=== PATIENT | male | born 1955 | race Caucasian/White ===

== ENCOUNTER 2016-11-30 20:07 | Inpatient (IN) | payer OTHER ==
--- NOTE | ~2016-11-30 | CO ---
Unit #: [id number] #: [id number] Patient: ELADIO SANDOVAL [id number] [facility] [address] [facility]. [place], [place] [address] [id number] MR#: [id number] NAME: ELADIO SANDOVAL ROOM: 55 Age: 61 Sex: M Admission Date: 11/30/2016 : 1955 Attending Physician: Ricarda Shultz M.D. Primary Care Physician: Vikram Rodríguez Consultation Date: 12/01/2016 CONSULTATION REPORT JOB NOTE: DICTATION ENDS HERE CC: PRIMARY CARE PHYSICIAN AND [facility] CARDIOLOGY REASON FOR CONSULTATION New onset atrial fibrillation. HISTORY OF PRESENT ILLNESS This is a 61-year-old white male, who is seen in our office by Dr. Portillo last year for evaluation of a ventral septal defect that is from a congenital defect, who came to the emergency room on this admission with fever for 3 or 4 days with increased shortness of breath with exertion and chills. He denies any nausea, vomiting, or diarrhea. He says he has occasional constipation. He denies any chest pain or pain in his neck, bilateral jaws, shoulders, arms, or elbow. He denies any palpitations. No dizziness, presyncope, or syncope. He denies orthopnea, but had some paroxysmal nocturnal dyspnea the day before admission. In the emergency room, the patient's blood pressure DICTATION ENDS HERE Dictated by... Oswaldo Willoughby/darlene TD: 12/01/2016 23:21 JOB #: [id number] CONSULTATION REPORT Page 1 of 1 X Eda Arriola APRN CONSULTATION REPORT
--- NOTE | ~2016-11-30 | CR63 ---
[facility] A Service of [facility] RADIOLOGY TEXT RESULTS PATIENT: ELADIO SANDOVAL LOCATION: [facility] : 54 UNIT #: [id number] AGE: [address]: Ricarda Shultz MD SEX: M ORDER DR: [id number] [place] [id number] [facility] [place] [facility]. [place], [place] [address] [id number] I MR#: [id number] Acc #: [id number] NAME: ELADIO SANDOVAL. : 1955 SEX: M STUDY DATE/TIME: 12/02/2016 7:31 UNIT: [facility] ROOM: [facility] STUDY DESCRIPTION: CR Chest 2 View Attending Physician: Ricarda Shultz M.D. Ordering Physician: Ricarda Shultz M.D. Primary Care Physician: Vikram [facility] MEDICAL IMAGING REPORT This report is preliminary unless electronic signature is present EXAM PA and lateral chest date 12/02/2016 HISTORY 61-year-old male with shortness of breath, pneumonia, fever, and cough. Symptoms began 3 days ago. Atrial fibrillation. COMPARISON PA and lateral chest 11/30/2016. FINDINGS There is moderate but stable cardiac enlargement with central vascular congestive change. Mild central interstitial prominence thought to represent a component of interstitial edema. There is more confluent edema, pneumonia or atelectasis in the infrahilar right lower lobe. No pneumothorax. Degenerative endplate spurring in the thoracic spine. IMPRESSION 1. Airspace disease in the right lower lobe. Correlate clinically for pneumonia. This is not thought to be significantly changed from the previous study. 2. Stable cardiomegaly with central vascular congestion and probable mild superimposed interstitial edema, probably not significantly changed from 11/30/2016. Dictated by... Belkis Goldstein M.D. THIS IS AN ELECTRONICALLY VERIFIED REPORT Belkis Goldstein M.D. at 12/03/2016 7:04 AM GARLAND/mohit TD: 12/02/2016 14:33 [facility] A Service of [facility] & [facility] RADIOLOGY TEXT RESULTS PATIENT: ELADIO SANDOVAL LOCATION: [place] [address] : 53 UNIT #: [id number] AGE: [address]: Ricarda Shultz MD SEX: M ORDER DR: JOB #: [id number] MEDICAL IMAGING REPORT Page 1 of 1 COPY
--- NOTE | ~2016-11-30 | CO ---
Unit #: [id number] #: [id number] Patient: ELADIO SANDOVAL [id number] [facility]. [place] [id number] [facility]. [place], [place] [address] [id number] MR#: [id number] NAME: ELADIO SANDOVAL. ROOM: 556 Age: 61 Sex: M Admission Date: 11/30/2016 : 1955 Attending Physician: Ricarda Shultz M.D. Primary Care Physician: Vikram Rodríguez Consultation Date: 12/01/2016 CONSULTATION REPORT REASON FOR CONSULTATION Atrial fibrillation, questionable new onset. HISTORY OF PRESENT ILLNESS This is a 61-year-old white male who has been seen by Dr. Portillo in the past, seen last September 2015 with evaluation for ventricular septal defect from congenital defect. The patient had a cardiac cath back in 2004, and it did not reveal any significant stenosis. The patient came to the emergency room after having a 4-day history of increased fevers, chills, body aches, increased shortness of breath (especially with exertion) and had some paroxysmal nocturnal dyspnea. He denies any dizziness, pre-syncope or syncope. He denies any chest pain, pain in his neck, bilateral jaws, shoulders, arms or elbows. He denies having any significant recent illness besides this episode. In the emergency room the patient's blood pressure was 154/80. His heart rate was 78, respirations 16, temperature 99.3. His chest x-ray showed patchy airspace disease in the right lower lobe. He has been diagnosed with pneumonia. His potassium is down to 2.7, magnesium 1.4. His WBC is 12.1, hemoglobin 11.6. His initial cardiac enzymes are negative. His EKG shows atrial fibrillation with controlled ventricular rate. No significant ischemia. The patient's potassium and magnesium have been supplemented. He has been started on a therapeutic dose of Lovenox, and the patient is continued on atenolol. Cardiology has been consulted to assist with evaluation and management. It is noted that the patient had a transesophageal echocardiogram in September of 2015 to evaluate the ventricular septal defect and was recommended to follow up and discuss the options of surgical repair, and the patient states that he just never followed up but has a desire to evaluate that option at this time. PAST MEDICAL HISTORY 1. Congenital heart disease; has a ventricular septal defect. 2. September 2015, two-D echo and transesophageal echocardiogram by Dr. Portillo at [facility] revealed ventricular septal defect, left to right shunt, ntct-pm-zbogoitd global hypokinesis of the left ventricle, LVEF of 40% to 45% with moderate mitral regurgitation, mild tricuspid regurgitation and mild aortic regurgitation with RV pressures normal. No thrombus or masses. 3. Hypertension. 4. Hyperlipidemia. 5. Diabetes mellitus type 2. 6. In 2004 had a cardiac cath per Dr. Hamilton Goodwin that showed luminal Unit #: [id number] #: [id number] Patient: ELADIO SANDOVAL irregularities in the left circumflex. Other coronaries with no significant stenosis with LVEF of 50% to 55%. Also at that time had a right cath in 2004 that showed sqpt-gc-anfxl shunt, mild mitral regurgitation, no aortic stenosis, ysis-fh-vosqbghr pulmonary hypertension. 7. Obesity, 227 pounds with a BMI of 28. 8. Nonsmoker. PAST SURGICAL HISTORY 1. Colonoscopy in 2004. Negative. 2. Appendectomy. HOME MEDICATIONS 1. Atenolol 100 mg p.o. daily. 2. Metformin 850 mg p.o. b.i.d. 3. Glipizide 10 mg 1 tablet p.o. daily. 4. Norvasc 10 mg p.o. daily. 5. Lisinopril 40 mg p.o. daily. 6. Hydrochlorothiazide 25 mg 1 tablet p.o. daily. 7. Lipitor 20 mg 1 tablet p.o. q.h.s. ALLERGIES Tetanus and diphtheria toxoid. SOCIAL HISTORY The patient lives alone. He is a lifetime nonsmoker. Drinks occasional beer. No illicit drug abuse. FAMILY HISTORY Negative for coronary artery disease. REVIEW OF SYSTEMS See details in the HPI. PHYSICAL EXAMINATION GENERAL: On exam, Mr. Sandoval is a 61-year-old white male, in some mild respiratory distress, some shortness of breath with conversation. VITAL SIGNS: Blood pressure is 172/90, heart rate 84, respirations 18, temperature 98, O2 sats 98% on 2 liters. NECK: Trachea is midline. No thyromegaly or lymphadenopathy. Conducted cardiac murmur. HEART: S1, S2, irregular rate and rhythm. A loud 3/6 systolic murmur over the aortic region, left sternal border. LUNGS: Diminished with some scattered rhonchi, faint wheeze. ABDOMEN: Soft, nontender. EXTREMITIES: Pedal pulses are palpable. He has 1+ pedal edema. DIAGNOSTIC STUDIES LABORATORY DIAGNOSTIC DATA: Glucose is 91, BUN 9, creatinine 0.2, eGFR is 107.8, sodium 140, potassium 2.7, chloride 105, CO2 22, calcium 7.6, magnesium 1.4, total protein 7.8, albumin 3.7, bili total 1, AST 25, ALT 25, alkaline phosphatase 72. Lactic acid is 1.1. TSH is 1.16. WBC is 12.1, hemoglobin 12.8, hematocrit 37.8, platelets 204. Initial cardiac enzymes - CK-MB 1, troponin less than 0.05; CK-MB 1.2, troponin less than 0.05. Repeat cardiac enzymes this morning - CK total 106, MB 2, percentage of MB 1.9, troponin 0.03. Urinalysis not obtained. Blood cultures are pending. IMAGING: Chest x-ray shows patchy airspace disease in the right lower Unit #: [id number] #: [id number] Patient: ELADIO SANDOVAL lobe concerning for pneumonia. CARDIOVASCULAR: EKG shows atrial fibrillation with controlled rate of 82 beats per minute, some ST-T wave abnormality. IMPRESSION 1. Dyspnea. 2. Fever. 3. Right lower lobe pneumonia. 4. Atrial fibrillation, questionable new onset. 5. Hypertension. 6. Hypokalemia. 7. Hypomagnesemia. 8. History of ventricular septal defect, congenital heart disease. Last REBECCA, 09/2015, showed a xenh-jl-fupsd shunt with LVEF of 40% to 45%, moderate mitral regurgitation, mild tricuspid regurgitation, mild aortic regurgitation. 9. No significant stenosis on cardiac cath in 2004. 10. Hyperlipidemia. 11. Diabetes mellitus type 2. 12. Mild obesity. 13. Nonsmoker. PLAN 1. Cardiology consulted to assist with evaluation and management of the patient's atrial fibrillation. Looking back on previous records, had seen Dr. Portillo a little over a year ago. and the patient was in sinus rhythm. The patient is asymptomatic. Denies any palpitations or heart racing, so questionable onset of the atrial fibrillation. 2. The patient's heart rate is fairly controlled. Continue on the Metoprolol but will decrease the dose to 25 mg p.o. b.i.d. 3. Also added lisinopril 10 mg p.o. b.i.d. 4. Recheck his two-D echo for reevaluation of the LVEF and ventricular septal defect. 5. The patient's potassium and magnesium are being supplemented. Will recheck the levels after supplementation. 6. The patient is on therapeutic dosing of Lovenox for anticoagulation. 7. Will obtain ABGs to evaluate the patient's CO2 and pO2 due to having some dyspnea with conversation. 8. On exam, there are no signs or symptoms of unstable angina. Cardiac enzymes are negative. EKG does not show anything acute. 9. Continue to monitor labs. Further recommendations pending per Dr. Casarez. Thank you very much for allowing us to participate in his care. Dictated by... Eda Arriola A.P.R.N. for Sriram Suarez/eric TD: 12/01/2016 12:03 JOB #: [id number] Unit #: [id number] #: [id number] Patient: ELADIO SANDOVAL CONSULTATION REPORT Page 1 of 1 X Eda Arriola APRN CONSULTATION REPORT
--- NOTE | ~2016-11-30 | HP ---
Unit #: [id number] #: [id number] Patient: ELADIO SANDOVAL [id number] [place], [place] [address] [id number] MR#: [id number] NAME: ELADIO SANDOVAL. ROOM: Age: 61 Sex: M Admission Date: 11/30/2016 : 1955 Attending Physician: Boaz Mon M.D. Primary Care Physician: Vikram Rodríguez HISTORY AND PHYSICAL CHIEF COMPLAINT Community-acquired pneumonia, new-onset atrial fibrillation. HISTORY OF PRESENT ILLNESS This pleasant 61-year-old male with history of a VSD, essential hypertension, AODM, is admitted for pneumonia and atrial fibrillation. The patient developed a respiratory infection about three weeks ago associated with low-grade fevers and a deep cough and head congestion. Initially, he had some improvement but worsened two nights ago when his fever returned. Today, he has been more short of breath, denies palpitations or any cardiac symptoms. He presents to this emergency department with a low-grade temperature with an EKG showing rate-controlled atrial fibrillation. The patient does take atenolol. In the ER, he was treated with potassium for a potassium level of 2.9, a liter of saline, therapeutic dose of Lovenox, Rocephin and Zithromax. A call was also made to the patient's cardiology group who will be seeing the patient in the morning. PAST MEDICAL HISTORY 1. Patient does have a history of VSD. Cardiac catheterization in 2004 revealed very mild CAD. It was suggestive of axbp-eo-rnzun shunt with mild MR and gwij-yv-akxzvyyo pulmonary hypertension. 2. AODM. 3. Essential hypertension. 4. Negative colonoscopy in 2004. ALLERGIES Tetanus booster. HOME MEDICATIONS 1. Atenolol 100 mg daily. 2. Norvasc. 3. Lisinopril. 4. Metformin 850 mg b.i.d. 5. Glipizide. Will check doses with the patient's pharmacist. SOCIAL HISTORY The patient lives alone. He is a lifelong nonsmoker. Drinks an occasional beer. FAMILY HISTORY Unit #: [id number] #: [id number] Patient: ELADIO SANDOVAL Negative for CAD. REVIEW OF SYSTEMS Notable for a cough, shortness of breath, VSD, essential hypertension, AODM, recent URI, fevers, chills. All other systems were reviewed and are negative. PHYSICAL EXAMINATION VITAL SIGNS: Temperature 99.3, pulse 77, respirations 16, blood pressure 154/80, O2 saturation 99% on room air. GENERAL: Pleasant, morbidly obese 61-year-old male currently in no acute distress. HEENT: Eyes PERRLA. Extraocular muscles are intact. Pharynx benign. NECK: Supple without adenopathy or thyromegaly. CHEST: Crackles at the right base. HEART: Irregular S1, S2 with a diastolic murmur best heard along the left sternal border. ABDOMEN: Bowel sounds are present. No hepatosplenomegaly, tenderness or masses. EXTREMITIES: Without edema. Pedal pulses are present. NEUROLOGIC: Awake, alert, oriented. Cranial nerves are intact. Equal strength throughout. DIAGNOSTIC STUDIES LABORATORY: Hematocrit 37.8, white blood cell count 12.1, normal platelet count. SMA-12 glucose 135, potassium 2.9, calcium 7.9. Lactic acid pending. IMAGING: Chest x-ray right lower lobe infiltrate. CARDIOVASCULAR: EKG atrial fibrillation rate 82, nonspecific ST wave flattening. ASSESSMENT 1. Right lower lobe community-acquired pneumonia. 2. New-onset atrial fibrillation. Patient is rate controlled. He takes atenolol for hypertension. 3. He has a history of VSD. 4. Essential hypertension. 5. Hypokalemia. 6. AODM. PLAN 1. Rocephin and Zithromax. Patient will need a follow up chest x-ray after treatment of pneumonia. 2. Replace potassium and check magnesium. 3. Case was discussed with Cardiology. 4. Lovenox was started. 5. Verify home medications. 6. Obtain thyroid function tests and echo. 7. Further workup and consultants depending on above. Unit #: [id number] #: [id number] Patient: ELADIO SANDOVAL Dictated by Belinda Boyle M.D. AML/cs TD: 11/30/2016 22:41 JOB #: [id number] HISTORY AND PHYSICAL Page 1 of 1 X Belinda Boyle MD X HISTORY AND PHYSICAL
--- NOTE | ~2016-11-30 | DS ---
Unit #: [id number] #: [id number] Patient: ELADIO SANDOVAL [id number] [address] [address] [id number] I MR#: [id number] NAME: ELADIO SANDOVAL. ROOM: 55 Age: 61 Sex: M Admission Date: 11/30/2016 : 1955 Discharge Date: Attending Physician: Ricarda Shultz M.D. Primary Care Physician: Vikram Rodríguez DISCHARGE SUMMARY DISCHARGE DIAGNOSES 1. Acute hypoxic respiratory failure. 2. Right lower lobe pneumonia. 3. New onset atrial fibrillation. 4. Hypokalemia, severe. 5. Hypomagnesemia, severe. 6. Hypocalcemia. 7. History of ventricular septal defect. 8. Hypertension, uncontrolled. 9. Diabetes mellitus type 2, uncontrolled. 10. Moderate pulmonary hypertension. 11. History of cardiac cath in 2004. Showed some luminal irregularities. Ejection fraction 50% to 55%. 12. Hyperlipidemia. 13. Nonsmoker. CONSULTATIONS Dr. Magaña. PROCEDURES None. DIAGNOSTIC TESTING LAB DATA: Glucose 161, potassium 3, magnesium 1.4. BNP 780. Blood cultures negative. Troponin negative. TSH 1.28. ABG - pH 7.5, carbon dioxide 32, oxygen 62. Lactic acid 1.1. IMAGING: Chest x-ray shows right lower lobe airspace disease. ALLERGIES Tetanus and diphtheria toxoid. DISCHARGE MEDICATIONS 1. Magnesium oxide 400 p.o. b.i.d. 2. Eliquis 5 mg p.o. b.i.d. 3. Metoprolol 25 p.o. t.i.d. 4. Lipitor 20 daily. 5. Lisinopril 40 p.o. daily. 6. Glipizide ER 10 mg p.o. daily. 7. ProAir 2 puffs q.i.d. p.r.n. shortness of breath. 8. Ceftin 500 p.o. b.i.d. 9. Potassium 40 mg p.o. daily. 10. Azithromycin 500 p.o. daily for 4 days. Unit #: [id number] #: [id number] Patient: ELADIO SANDOVAL HOSPITALIZATION COURSE A 61 year old admitted because of shortness of breath. Acute hypoxic respiratory failure. Currently he is saturating fine. He does not need home O2. His sats are greater than 90% on room air. Right lower lobe pneumonia. Patient started on broad-spectrum antibiotics, including IV Rocephin and Zithromax. At the time of discharge patient will be discharged on Ceftin and azithromycin. Atrial fibrillation, new onset. Patient was seen by cardiology. Patient was started with Metoprolol. Currently rate controlled. Continue with Eliquis for anticoagulation. Severe hypokalemia and hypomagnesemia. Replaced with IV and p.o. potassium and magnesium. I am going to repeat levels before discharge. Hypertension, uncontrolled. Metoprolol has been increased. Diabetes mellitus type 2, uncontrolled. Continue with glipizide. PLAN/FOLLOWUP Discussed with cardiology. Okay to discharge the patient home. Patient will be discharged home later today once magnesium level and potassium level is resulted. Follow with family physician in [address] Charles. Patient might have obstructive sleep apnea. He will have a sleep study and pulmonary function test as an outpatient. Follow with Dr. Charles with results. Follow with Dr. Casarez in 3 weeks. NOTE: Discharge time taken is 33 minutes. Dictated by... Sriram Sorensen/eric TD: 12/03/2016 14:20 JOB #: [id number] DISCHARGE SUMMARY Page 1 of 1 X Ricarda Shultz MD X DISCHARGE SUMMARY
--- NOTE | ~2016-11-30 | EKG ---
PATIENT: ELADIO SANDOVAL UNIT #: [id number] Ventricular Rate: 89 BPM Atrial Rate: 202 BPM QRS Duration: 108 ms Q-T Interval: 388 ms QTC Calculation(Bezet): 472 ms Calculated R [place]: 27 degrees Calculated T [place]: 88 degrees Diagnosis Line: Atrial fibrillation Diagnosis Line: Nonspecific T wave abnormality , probably Diagnosis Line: digitalis effect Diagnosis Line: Prolonged QT Diagnosis Line: Abnormal ECG Diagnosis Line: When compared with ECG of 01-DEC-2016 04:49, Diagnosis Line: ST no longer depressed in Inferior leads Diagnosis Line: Nonspecific T wave abnormality no longer evident Diagnosis Line: in Inferior leads Diagnosis Line: Confirmed by MARY JO SIMMONS MD ([id number]) on 12/03/2016 Diagnosis Line: 7:48:09 PM INTERPRETING MD: TROY WILLINGHAM
--- NOTE | ~2016-11-30 | EKG ---
PATIENT: ELADIO SANDOVAL UNIT #: [id number] Ventricular Rate: 82 BPM Atrial Rate: 61 BPM QRS Duration: 104 ms Q-T Interval: 402 ms QTC Calculation(Bezet): 469 ms Calculated R [place]: 5 degrees Calculated T [place]: 110 degrees Diagnosis Line: Atrial fibrillation Diagnosis Line: Abnormal QRS-T angle, consider primary T wave Diagnosis Line: abnormality Diagnosis Line: Abnormal ECG Diagnosis Line: No previous ECGs available Diagnosis Line: Confirmed by MARY JO SIMMONS MD ([id number]) on 11/30/2016 Diagnosis Line: 11:09:13 PM INTERPRETING MD: TROY WILLINGHAM
--- NOTE | ~2016-11-30 | CO ---
Unit #: [id number] #: [id number] Patient: ELADIO SANDOVAL [id number] [place] [id number] [facility]. [place], [place] [address] [id number] I MR#: [id number] NAME: ELADIO SANDOVAL. ROOM: 556 Age: 61 Sex: M Admission Date: 11/30/2016 : 1955 Attending Physician: Ricarda Shultz M.D. Primary Care Physician: Vikram Rodríguez Consultation Date: 12/01/2016 CONSULTATION REPORT REASON FOR CONSULTATION Pneumonia, respiratory failure, abnormal blood gas. HISTORY OF PRESENT ILLNESS This 61-year-old gentleman, who has diabetes, hypertension and history of VSD, presents to the hospital with "high fever." He apparently had URI-type symptoms 2 weeks ago with rhinitis, mild cough but no sputum. He treated himself with over the counter remedies and improved. Approximately 2 days ago he developed a "high fever" but did not take it with a thermometer. He had cough but no sputum and presented to the hospital after he had increasing dyspnea on exertion. Chest x-ray suggested a right lower lobe infiltrate. It is reported that he had saturations of 99% on room air, but I doubt the accuracy. He had an arterial blood gas with a pO2 of 62 on 2 liters. We were asked to evaluate. The patient does feel better today. PAST MEDICAL HISTORY Past medical history is remarkable for hypertension, diabetes, history of VSD. He denies any type of lung disease. MEDICATIONS AT HOME Atenolol, Norvasc, lisinopril, metformin, glipizide. He denies any inhaled medicines or oxygen. ALLERGIES Tetanus. SOCIAL HISTORY He is a never smoker, occasionally drinks beer. FAMILY HISTORY No definite familial lung disease. REVIEW OF SYSTEMS No difficulty swallowing. Occasional indigestion with some foods. He denies snoring or daytime sleepiness, although he has the body habitus for sleep apnea. No hemoptysis, chest pain, pleurisy. No abdominal pain, melena, hematochezia, hematuria, dysuria, focal weakness, paresthesias, leg pain, swelling. Further review of systems is negative. PHYSICAL EXAMINATION GENERAL: Examination reveals a patient who is in no acute distress on low-flow nasal cannula oxygen. VITAL SIGNS: He is afebrile. Pulse 83, respiratory rate 24, blood Unit #: [id number] #: [id number] Patient: ELADIO SANDOVAL F pressure 158/97. He is 6'3", 227 pounds. BMI is 28. HEENT: Pupils equal, round and reactive to light. Sclerae anicteric. Head atraumatic. Mallampati class 4 oropharynx. NECK: Supple. No supraclavicular or cervical adenopathy appreciated. CHEST: Decreased breath sounds. A few scattered crackles at the bases. No dense consolidation. He did have a very rare wheeze. CARDIAC: Examination reveals an irregular rhythm, controlled rate. No gallop. ABDOMEN: Abdomen is obese, soft, nontender. No hepatomegaly or rebound. EXTREMITIES: Extremities reveal no clubbing, cyanosis or edema. No calf tenderness. SKIN: Warm and dry without rash or diaphoresis. NEUROLOGIC: Grossly intact. No focal muscular or sensory deficits. DIAGNOSTIC STUDIES IMAGING: Chest x-ray - Right lower lobe infiltrate. LABORATORY EXAMINATION: Arterial blood gas - pH 7.5, pCO2 of 32, pO2 62 on 2 liters. BUN and creatinine were normal. He had a low potassium and magnesium. Lactic acid was 1.1. INR has not been rechecked. Cardiac enzymes negative. White blood cell count is 11.2, hemoglobin 11.6, platelet count 204. Blood cultures performed and are pending. CARDIOVASCULAR: EKG - Atrial fibrillation. IMPRESSION 1. Hypoxemic respiratory failure. 2. Pneumonia, community acquired, right lower lobe. 3. Obesity. Body habitus consistent with sleep apnea but otherwise denies symptoms. 4. Mild wheeze. 5. Atrial fibrillation. 6. Diabetes. 7. Hypertension. PLAN Agree with antibiotics. Clinically he has improved. Will check oxygenation needs at discharge. Will need followup chest x-ray in the office, and this has been discussed with the patient. I will add a brief course of nebulized bronchodilators but will avoid steroids for his pneumonia and wheeze given his diabetes. Thank you very much for allowing me to participate in the care of Mr. Sandoval. Dictated by... Joey Charles M.D. HONORIO/eric TD: 12/08/2016 10:52 JOB #: [id number] Unit #: [id number] #: [id number] Patient: ELADIO SANDOVAL CONSULTATION REPORT Page 1 of 1 X Joey Charels MD CONSULTATION REPORT
--- NOTE | ~2016-11-30 | CR63 ---
[facility] A Service of [facility] RADIOLOGY TEXT RESULTS PATIENT: ELADIO SANDOVAL LOCATION: [facility] : 54 UNIT #: [id number] AGE: [address]: Ricarda Shultz MD SEX: M ORDER DR: [id number] [facility] [address] [place], [place] [address] [id number] I MR#: [id number] Acc #: [id number] NAME: ELADIO SANDOVAL. : 1955 SEX: M STUDY DATE/TIME: 11/30/2016 20:13 UNIT: CEDOF ROOM: [id number] STUDY DESCRIPTION: CR Chest 2 View Attending Physician: Belinda Boyle M.D. Ordering Physician: Dewayne Muniz M.D. Primary Care Physician: Vikram Rodríguez MEDICAL IMAGING REPORT This report is preliminary unless electronic signature is present EXAM Two-view chest, 11/30/2016 HISTORY Shortness of air, fever, cough, congestion x3 days. FINDINGS 2 views of the chest demonstrates patchy airspace disease right lower lobe concerning for acute infectious pneumonia. Recommend clinical and radiographic followup to resolution. There is cardiomegaly. Mild prominence of the pulmonary vascular interstitium could represent a component of CHF. No effusions. Osseous structures are unremarkable. IMPRESSION Patchy airspace disease right lower lobe concerning for acute infectious pneumonia. Recommend clinical and radiographic followup to resolution following appropriate treatment. Dictated by... Barb Jordan M.D. THIS IS AN ELECTRONICALLY VERIFIED REPORT Barb Jordan M.D. at 12/01/2016 10:59 PM HANY/joana TD: 12/01/2016 00:09 JOB #: [id number] MEDICAL IMAGING REPORT Page 1 of 1 COPY
--- NOTE | ~2016-11-30 | EKG ---
PATIENT: ELADIO SANDOVAL UNIT #: [id number] Ventricular Rate: 88 BPM Atrial Rate: 96 BPM QRS Duration: 108 ms Q-T Interval: 396 ms QTC Calculation(Bezet): 479 ms Calculated R [place]: 28 degrees Calculated T [place]: -57 degrees Diagnosis Line: Atrial fibrillation Diagnosis Line: Nonspecific ST and T wave abnormality Diagnosis Line: Prolonged QT Diagnosis Line: Abnormal ECG Diagnosis Line: No previous ECGs available Diagnosis Line: Confirmed by MARY JO SIMMONS MD ([id number]) on 12/01/2016 Diagnosis Line: 10:14:29 PM INTERPRETING MD: TROY WILLINGHAM
[2016-11-30 18:10] LABS: BASOPHIL# 0.1 X10e3 (0-0.3); BASOPHIL% 0.7 % (0-2.5); EOSINOPHIL# 0.2 X10e3 (0-0.7); EOSINOPHIL% 1.2 % (0.0-7.0); HEMATOCRIT 37.8 % (38.0-50.0); HEMOGLOBIN 12.8 gm/dL (13.0-16.0); LYMPHOCYTE# 1.3 X10e3 (1.0-3.5); LYMPHOCYTE% 10.8 % (17.0-45.0); MEAN CELL VOLUME 94.1 FL (83-96); MEAN CORPUSCULAR HEMOGLOBIN 31.9 PG (28-34); MEAN CORPUSCULAR HGB CONC 33.9 g/dL (30-36); MEAN PLATELET VOLUME 8.5 FL (6.5-11.5); MONOCYTE# 1.4 X10e3 (0-1.0); MONOCYTE% 11.3 % (3.0-12.0); NEUTROPHIL# 9.1 X10e3 (1.5-7.1); PLATELET COUNT 222 X10e3 (140-420); RED BLOOD COUNT 4.01 X10e (3.90-5.60); RED CELL DISTRIBUTION WIDTH 14.5 % (11.0-15.5); WHITE BLOOD COUNT 12.1 X10e3 (4.0-10.5)
[2016-11-30 18:12] LABS: DIFF IND NO
[2016-11-30 18:40] LABS: ALBUMIN SERUM 3.7 g/dL (3.5-5.0); BILIRUBIN, DIRECT 0.3 mg/dL (0.0-0.2); BILIRUBIN,INDIRECT 0.7 mg/dL (0.0-0.9); BUN/CREATININE RATIO 18.57; CALCIUM SERUM 7.9 mg/dL (8.4-10.2); CREATININE SERUM 0.7 mg/dL (0.6-1.4); GLOM FILT RATE Estimated 101.2 mL/min (>60); PROTEIN TOTAL SERUM 7.8 g/dL (6.0-8.3)
[2016-11-30 18:45] LABS: POTASSIUM 2.9 mmol/L (3.5-5.1)
[~2016-11-30 20:07] MED LIST: AMOXICILLIN PO; ATENOLOL PO; DARVOCET-N 1001 TAB PO; LISINOPRIL PO; LOPRESSOR PO; NORVASC PO
[2016-11-30 22:00] LABS: POC - TROPONIN <0.05 ng/mL (<=0.05)
[2016-11-30 22:01] LABS: POC - CKMB 1.2 ng/mL (0.0-7.9); POC - TROPONIN <0.05 ng/mL (<=0.05)
[2016-12-01 01:07] LABS: %MB 1.8 % (0.0-4.0)
[2016-12-01 07:04] LABS: BASOPHIL% 0.2 % (0-2.5); EOSINOPHIL# 0.1 X10e3 (0-0.7); EOSINOPHIL% 0.6 % (0.0-7.0); HEMATOCRIT 34.1 % (38.0-50.0); HEMOGLOBIN 11.6 gm/dL (13.0-16.0); LYMPHOCYTE# 1.6 X10e3 (1.0-3.5); LYMPHOCYTE% 14.1 % (17.0-45.0); MEAN CELL VOLUME 93.8 FL (83-96); MEAN CORPUSCULAR HEMOGLOBIN 31.9 PG (28-34); MEAN PLATELET VOLUME 8.8 FL (6.5-11.5); MONOCYTE# 1.2 X10e3 (0-1.0); MONOCYTE% 10.9 % (3.0-12.0); NEUTROPHIL# 8.3 X10e3 (1.5-7.1); NEUTROPHIL% 74.2 % (40-75); PLATELET COUNT 204 X10e3 (140-420); RED BLOOD COUNT 3.63 X10e (3.90-5.60); RED CELL DISTRIBUTION WIDTH 14.4 % (11.0-15.5); WHITE BLOOD COUNT 11.2 X10e3 (4.0-10.5)
[2016-12-01 07:10] LABS: DIFF IND NO
[2016-12-01 07:41] LABS: CALCIUM SERUM 7.6 mg/dL (8.4-10.2); CREATININE SERUM 0.6 mg/dL (0.6-1.4); GLOM FILT RATE Estimated 107.8 mL/min (>60); MAGNESIUM 1.4 mg/dL (1.6-3.0)
[2016-12-01 07:53] LABS: THYROID STIMULATING HORMONE 1.16 uIU/ml (0.34-5.60)
[2016-12-01 07:57] LABS: POTASSIUM 2.7 mmol/L (3.5-5.1)
[2016-12-01 08:00] LABS: FREE THYROXIN (T4) 1.1 ng/dL (0.58-1.64)
[2016-12-01 08:29] LABS: %MB 1.9 % (0.0-4.0)
[2016-12-01 11:22] LABS: ARTERIAL BLOOD GAS CARBOXY HB 1.3 %sat (0.0-9.0); ARTERIAL BLOOD GAS HCO3 25.5 mmol/L; ARTERIAL BLOOD GAS MET HB 0.5 %sat (0.0-2.0); ARTERIAL BLOOD GAS PCO2 32.5 mmHg (35.0-45.0); ARTERIAL BLOOD GAS pH 7.503 (7.350-7.450)
[2016-12-01 11:23] LABS: ARTERIAL BLOOD GAS ALLEN TEST N; ARTERIAL BLOOD GAS ART SITE RIGHT RADIAL; ARTERIAL BLOOD GAS DELIVERY NASAL CANNULA; ARTERIAL BLOOD GAS PO2 62.3 mmHg (80.0-100); ARTERIAL DRAW? YES
[2016-12-01] MEDS ORDERED: ATENOLOL50 MG PO (11:35)
[2016-12-01] MEDS ORDERED: METFORMIN HCL850 MG PO (11:36)
[2016-12-01] MEDS ORDERED: HYDRALAZINE HCL25 MG (11:36)
[2016-12-01] MEDS ORDERED: AMLODIPINE BESY10 MG PO (11:37)
[2016-12-01] MEDS ORDERED: PRINIVIL40 MG PO (11:37)
[2016-12-01] MEDS ORDERED: LIPITOR20 MG PO (11:38)
[2016-12-01] MEDS ORDERED: GLIPIZIDE ER10 MG PO (11:39)
[2016-12-02 07:33] LABS: HEMATOCRIT 33.9 % (38.0-50.0); HEMOGLOBIN 11.4 gm/dL (13.0-16.0); MEAN CELL VOLUME 94.1 FL (83-96); MEAN CORPUSCULAR HEMOGLOBIN 31.7 PG (28-34); MEAN CORPUSCULAR HGB CONC 33.7 g/dL (30-36); MEAN PLATELET VOLUME 8.7 FL (6.5-11.5); RED BLOOD COUNT 3.61 X10e (3.90-5.60); RED CELL DISTRIBUTION WIDTH 14.7 % (11.0-15.5); WHITE BLOOD COUNT 10.6 X10e3 (4.0-10.5)
[2016-12-02 08:14] LABS: THYROID STIMULATING HORMONE 1.28 uIU/ml (0.34-5.60)
[2016-12-02 08:21] LABS: FREE THYROXIN (T4) 1.28 ng/dL (0.58-1.64)
[2016-12-02 08:35] LABS: BUN/CREATININE RATIO 16.66; CALCIUM SERUM 7.6 mg/dL (8.4-10.2); CREATININE SERUM 0.6 mg/dL (0.6-1.4); GLOM FILT RATE Estimated 107.8 mL/min (>60); MAGNESIUM 1.5 mg/dL (1.6-3.0)
[2016-12-02 08:38] LABS: POTASSIUM 2.9 mmol/L (3.5-5.1)
[2016-12-02 11:37] LABS: %MB 2.3 % (0.0-4.0)
[2016-12-03 05:43] LABS: HEMATOCRIT 33.2 % (38.0-50.0); HEMOGLOBIN 11.5 gm/dL (13.0-16.0); MEAN CORPUSCULAR HEMOGLOBIN 32.2 PG (28-34); MEAN CORPUSCULAR HGB CONC 34.7 g/dL (30-36); MEAN PLATELET VOLUME 8.2 FL (6.5-11.5); RED BLOOD COUNT 3.57 X10e (3.90-5.60); RED CELL DISTRIBUTION WIDTH 14.5 % (11.0-15.5)
[2016-12-03 06:41] LABS: BUN/CREATININE RATIO 13.33; CALCIUM SERUM 7.9 mg/dL (8.4-10.2); CREATININE SERUM 0.6 mg/dL (0.6-1.4); GLOM FILT RATE Estimated 107.8 mL/min (>60); MAGNESIUM 1.4 mg/dL (1.6-3.0)
[2016-12-03] MEDS ORDERED: MAG-OX 400400 M1 PO (14:17)
[2016-12-03] MEDS ORDERED: ELIQUIS5 MG PO (14:18)
[2016-12-03] MEDS ORDERED: LOPRESSOR PO (14:24)
[2016-12-03] MEDS ORDERED: KLOR-CON PO (14:30)
[2016-12-03] MEDS ORDERED: PROAIR HFA8.5 GM INH (14:31)
[2016-12-03] MEDS ORDERED: ZITHROMAX PO (14:32)
[2016-12-03] MEDS ORDERED: CEFTIN PO (14:32)
[2016-12-03 14:48] LABS: MAGNESIUM 1.8 mg/dL (1.6-3.0); POTASSIUM 3.2 mmol/L (3.5-5.1)
== END 2016-12-03 18:18 | disposition home or self-care (01) | DRG 193 ==
LOC: CED 20:07 → CEDOF 22:00 → C5B 12-01 06:44
PROVIDERS: Emergency Medicine; Internal Medicine; Internal Medicine Cardiovascular Disease; Nurse Practitioner Family
PROC: B246ZZZ Ultrasonography of Right and Left Heart (ICD-10-PCS; principal; 2016-12-01)
DX: J18.1 Lobar pneumonia, unspecified organism (principal); J96.01 Acute respiratory failure with hypoxia; I27.2 Other secondary pulmonary hypertension; E83.42 Hypomagnesemia; E11.65 Type 2 diabetes mellitus with hyperglycemia; Q21.0 Ventricular septal defect; I48.91 Unspecified atrial fibrillation; E87.6 Hypokalemia; E83.51 Hypocalcemia; I10 Essential (primary) hypertension; E78.5 Hyperlipidemia, unspecified; Z79.01 Long term (current) use of anticoagulants; Z79.84 Long term (current) use of oral hypoglycemic drugs; Z79.899 Other long term (current) drug therapy; E66.9 Obesity, unspecified; Z68.28 Body mass index [BMI] 28.0-28.9, adult; Z88.7 Allergy status to serum and vaccine
CPT/HCPCS: 36415; 36600; 71020; 80048; 80076; 82550; 82553; 82803; 82947; 83605; 83735; 83880; 84132; 84439; 84443; 84484; 85025; 85027; 87040; 93005; 93306; 94010; 94640; 94760; 99285; J0456; J0696; J1650; J1815; J1940; J2060; J3475

== ENCOUNTER 2017-04-10 02:31 | Inpatient (IN) | payer OTHER ==
[~2017-04-10] VITALS: Ht 190.5 cm; Wt 98.1 kg
--- NOTE | ~2017-04-10 | CR72 ---
[facility] A Service of [facility] & [facility] RADIOLOGY TEXT RESULTS PATIENT: ELADIO SANDOVAL LOCATION: [place] [address] : 53 UNIT #: [id number] AGE: [address]: Dawn Gutiérrez MD SEX: M ORDER DR: [id number] [facility] [address] [facility] [place] [facility]. [place], [place] [address] [id number] I MR#: [id number] Acc #: [id number] NAME: ELADIO SANDOVAL : 1955 SEX: M STUDY DATE/TIME: 04/12/2017 6:32 UNIT: [facility] ROOM: [facility] STUDY DESCRIPTION: CR Chest Single View Portable Attending Physician: Dawn Gutiérrez M.D. Ordering Physician: Dawn Gutiérrez M.D. Primary Care Physician: Vikram Rodríguez MEDICAL IMAGING REPORT This report is preliminary unless electronic signature is present EXAM Portable chest, 04/12 INDICATION Shortness of air and CHF and chest tightness for the last 2 days. FINDINGS AP portable chest is compared with 04/10/2017. Cardiomegaly is stable. Vascular congestion and pulmonary edema have improved. There is some mild residual disease in both bases. No pneumothorax. Dictated by... Boaz Recio Jr., M.D. THIS IS AN ELECTRONICALLY VERIFIED REPORT Boaz Recio Jr., M.D. at 04/12/2017 3:47 PM ADELINA/urban TD: 04/12/2017 10:24 JOB #: [id number] MEDICAL IMAGING REPORT Page 1 of 1 COPY
--- NOTE | ~2017-04-10 | CR72 ---
[facility] A Service of [facility] & [facility] RADIOLOGY TEXT RESULTS PATIENT: ELADIO SANDOVAL LOCATION: [place] [address]- : 53 UNIT #: [id number] AGE: [address]: Dawn Gutiérrez MD SEX: M ORDER DR: [id number] [facility] [address] [facility]. [place], [place] [address] [id number] I MR#: [id number] Acc #: [id number] NAME: ELADIO SANDOVAL. : 1955 SEX: M STUDY DATE/TIME: 04/10/2017 3:23 UNIT: [facility] ROOM: [facility] STUDY DESCRIPTION: CR Chest Single View Portable Attending Physician: Dawn Gutiérrez M.D. Ordering Physician: Roscoe Montenegro M.D. Primary Care Physician: Vikram Rodríguez MEDICAL IMAGING REPORT This report is preliminary unless electronic signature is present EXAM Chest x-ray, 04/10/2017 HISTORY 62-year-old male in the ED complaining of 1-day history of shortness of air and chest tightness. TECHNIQUE AP portable upright chest x-ray FINDINGS The exam shows moderate cardiomegaly with pulmonary venous redistribution and mild diffuse interstitial pulmonary edema suggesting congestive heart failure. No visible airspace consolidation or pleural effusion. Similar findings were present on the previous study of 12/02/2016. IMPRESSION Cardiomegaly with likely vascular congestion as noted above. Dictated by... Massimo Desouza M.D. THIS IS AN ELECTRONICALLY VERIFIED REPORT Massimo Desouza M.D. at 04/10/2017 3:54 PM NARDA/matt TD: 04/10/2017 12:35 JOB #: [id number] MEDICAL IMAGING REPORT Page 1 of 1 COPY
--- NOTE | ~2017-04-10 | DS ---
Unit #: [id number] #: [id number] Patient: ELADIO SANDOVAL [id number] [address] [place], [place] [address] [id number] I MR#: [id number] NAME: ELADIO SANDOVAL ROOM: 562 Age: 62 Sex: M Admission Date: 04/10/2017 : 1955 Discharge Date: 04/14/2017 Attending Physician: Adam Magaña M.D. Primary Care Physician: Kurtis Portillo M.D. DISCHARGE SUMMARY DISCHARGE DIAGNOSES 1. Acute on chronic systolic diastolic congestive heart failure. Transesophageal echocardiogram performed 02/12/2017 showed left ventricular ejection fraction of 45%. Also patient is known to have a ventral septal defect with a left to right shunt and jet diameter measuring 1.1 cm. Also has a severely dilated left atrium. 2. Moderate pulmonary hypertension with an right ventricular systolic pressure of 46 mmHg. Mild to moderate tricuspid regurgitation. 3. Permanent atrial fibrillation with slow ventricular response, decreased down a dose of beta-lesia, post slow ventricular response with 3.8 second pause, had to decrease down beta-lesia. 4. Probable sleep apnea. Has appointment to follow up with Dr. Charles as an outpatient. 5. Cardiac catheterization on 02/12/2017 revealed no blockages, no coronary artery disease, mild to moderate pulmonary hypertension. 6. Hypertension. 7. Hyperlipidemia. 8. Diabetes mellitus type 2. DISCHARGE MEDICATIONS 1. Decreased down dose of beta-lesia. Will be on atenolol 50 mg p.o. once daily instead of b.i.d. 2. Bumex 2 mg p.o. twice daily, new prescription. 3. Hydralazine 50 mg p.o. twice daily, new prescription. 4. Spirolactone 25 mg 1 tablet daily, new prescription. 5. Lisinopril 40 mg p.o. daily. 6. Eliquis 5 mg p.o. twice daily 7. Metformin 850 mg p.o. twice daily. 8. Amlodipine 10 mg p.o. daily. 9. Glipizide 10 mg p.o. daily. 10. K-Dur 10 mEq p.o. daily. HOSPITAL COURSE This is a 62-year-old white male who is well known to Dr. Portillo. He has seen him in the office and has seen him recently. He came into the hospital with increased shortness of breath, two pillow orthopnea and some paroxysmal nocturnal dyspnea. He had a little chest tightness with the shortness of breath but denied any radiation of the pain. He did not report any fever or chills and no cough. He did have some mild lower extremity edema but no abdominal swelling. It was discussed in the history and physical, the patient recently had seen Dr. Portillo less than two weeks ago and they were discussing options to repair his ventral septal defect. Patient was trying to delay the surgery until sometime in August or September. The patient had undergone a REBECCA in 01/2017 and report Unit #: [id number] #: [id number] Patient: ELADIO SANDOVAL is documented in the H and P. The patient had no hemodynamically significant coronary artery disease. After the heart catheterization and the REBECCA, Dr. Portillo recommended a surgical correction of his VSD. Especially given evidence of LV dysfunction and elevated right-sided pressures. The patient, as mentioned, wanted to wait till possibly August; however, during this admission Dr. aMgaña had a long discussion with the patient and advised him to proceed with the VSD closures soon and also have an obstructive sleep apnea study completed. The patient states that he will be considering it and wants to follow up with Dr. Portillo and make the decision. During this hospitalization, he was gently diuresed with IV Bumex and he is now back at baseline. He, on the date of discharge, has not shortness of breath with exertion. His edema has resolved. He sad he feels better. Dr. Magaña advises him to stay on Bumex 2 mg twice daily. His blood pressure fluctuated. Dr. Magaña did add hydralazine and for afterload effect, and patient was having some problems with hypokalemia. He has potassium supplements. He was also initiated on spirolactone and will be discharged home on a low dose potassium 10 mEq daily. As far as his rhythm, he remained in atrial fibrillation, which is permanent. He had several pauses while he was sleeping. When he was awake and active his heart rate remained controlled. He would even be a little fast at times, that is why Dr. Magaña was trying to keep him on a beta-lesia, so Dr. Magaña decreased the dose down to 50 mg in the morning and 25 mg of atenolol in the evening but he continued to have pauses during sleep, as long as 3.8 seconds at one time and then some lesser pauses during sleeping, so he decreased the nighttime beta-lesia dose. The patient is today ambulating in the malik. His heart rate is stable, anywhere from 60s to 80s. No complaints of dizziness, palpitations, or weakness. On the date of discharge, the patient's vital signs are stable. PHYSICAL EXAMINATION AT TIME OF DISCHARGE VITAL SIGNS: Blood pressure is 144/80, heart rate 64, respirations 18, and he is afebrile. HEART: S1 and S2. Irregular rate and rhythm. Grade 4/6 systolic murmur over aortic region left sternal border. LUNGS: Bilaterally clear. ABDOMEN: Soft, nontender. EXTREMITIES: Pedal pulses are palpable. No pedal edema. DIAGNOSTIC STUDIES Labs today, glucose is 107, BUN 23, creatinine 1.0, EGFR is 79.8, sodium 142, potassium 3.6, chloride 102, CO2 29, calcium 9.0, magnesium 1.9, total protein 7.6, albumin 3.7. Bili total is 1.5. WBC is 9.8, hemoglobin 13.4, hematocrit 39.5, and platelets is 306. Telemetry shows atrial fibrillation with variable rates anywhere from having an occasional pause with sleep to heart rate in the 80s. PLAN/INSTRUCTIONS 1. Patient will be discharged home today and instructed to follow up with Dr. Portillo on , 05/06/2017 at 3:45 p.m. 2. Patient will be instructed to follow up with the trawl net maker for his sleep apnea. He mentioned having an appointment with Dr. Charles. 3. Instructed to followup with his PCP in one to two weeks. 4. As mentioned, Dr. Magaña had a long discussion with the patient and he suggested that he should proceed with VSD closure soon and have an Unit #: [id number] #: [id number] Patient: ELADIO SANDOVAL obstructive sleep apnea study also. 5. Provide CHF education. Continue to be on fluid restriction. Daily weights and report any necessary changes. 1. Dictated by... Eda Arriola A.P.R.N. for Sriram Nieto/ts TD: 04/14/2017 13:56 JOB #: [id number] DISCHARGE SUMMARY Page 1 of 1 X Eda Arriola APRN DISCHARGE SUMMARY
--- NOTE | ~2017-04-10 | EKG ---
PATIENT: ELADIO SANDOVAL UNIT #: [id number] Ventricular Rate: 74 BPM Atrial Rate: 300 BPM QRS Duration: 102 ms Q-T Interval: 412 ms QTC Calculation(Bezet): 457 ms Calculated R [place]: 11 degrees Calculated T [place]: 86 degrees Diagnosis Line: Atrial fibrillation Diagnosis Line: RSR' or QR pattern in V1 suggests right Diagnosis Line: ventricular conduction delay Diagnosis Line: Abnormal ECG Diagnosis Line: When compared with ECG of 02-DEC-2016 05:45, Diagnosis Line: RSR' pattern in V1 is now Present Diagnosis Line: Confirmed by AUGUSTO CLEANING MD ([id number]) on Diagnosis Line: 04/11/2017 4:47:42 PM INTERPRETING MD: BRENTON
--- NOTE | ~2017-04-10 | HP ---
Unit #: [id number] #: [id number] Patient: ELADIO SANDOVAL [id number] [facility] [address] [facility]. [place], [place] [address] [id number] MR#: [id number] NAME: ELADIO SANDOVAL ROOM: 562 Age: 62 Sex: M Admission Date: 04/10/2017 : 1955 Attending Physician: Dawn Gutiérrez M.D. Primary Care Physician: Vikram Rodríguez HISTORY AND PHYSICAL HISTORY OF PRESENT ILLNESS This is a pleasant 62-year-old male who is typically followed with Dr. Portillo in the past. He has a past medical history of ventricular septal defect from congenital , hypertension, hyperlipidemia, diabetes mellitus type 2, atrial fibrillation on chronic anticoagulation with Eliquis. The patient states he was feeling fine until about when he developed shortness of breath, two pillow orthopnea, as well as PND. He states he also had some accompanying chest tightness but denied any radiation of the pain, diaphoresis, nausea or vomiting. He denies any swelling of his lower extremities or abdomen. The patient states he has been seen and evaluated recently with Dr. Portillo and they had been discussing options regarding repair of his ventricular septal defect. 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 It is notable the patient had undergone REBECCA in January [address] Portillo which showed an LVEF of 45%, also a membranous VSD with left to right shunt with a jet measuring 1.1 cm, also mild concentric LVH, severe dilation of the left atrium. No evidence of thrombus in the left atrium or left atrial appendage was noted. Bubble study was performed which showed no shunt across the interatrial septum, RVSP of 46 mmHg consistent with moderate pulmonary hypertension, mildly dilated annulus, structurally normal mitral valve, moderate mitral insufficiency, tricuspid valve structurally normal, mild to moderate TR. He also underwent left and right cardiac catheterization with Dr. Portillo on February 122016 which showed mildly elevated right-sided pressure suggestive of mild to moderate pulmonary hypertension. Next, normal LV end-diastolic pressures at rest with no gradient recorded across the aortic valve on pullback. Next, step up in oxygen saturation was noted at the level of the right ventricle with a calculated left to right shunt of 1.4 to 1, mild left ventricular dilation with moderate global hypokinesis and an estimated EF of 40% to 45%. Diffuse luminal irregularities with no hemodynamically significant epicardial coronary artery disease is noted. At that time he was given options which included surgical correction of his VSD if he was interested, especially given evidence of LV dysfunction and elevated right-sided pressure. The patient was choosing to think about it. On arrival to the emergency room, the patient's blood pressure was 134/84, oxygen saturation 93% on room air, pulse of 56. EKG was performed which showed atrial fibrillation with controlled ventricular rate of 74 beats Unit #: [id number] #: [id number] Patient: ELADIO SANDOVAL F per minute, QTc interval 457 msec. No acute ischemic change was noted. Cardiac markers were drawn which showed no elevation of troponin and the patient was also given 40 mg of IV Lasix. Initial BNP was noted to be 558 and his chest x-ray showed cardiomegaly with likely vascular congestion, evidence of mild diffuse interstitial pulmonary edema suggestive of CHF. We are admitting the patient for the reasons stated above. PAST MEDICAL HISTORY 1. Hypertension. 2. Hyperlipidemia. 3. Congenital VSD. 4. Diabetes mellitus type 2. 5. Atrial fibrillation, on chronic anticoagulation with Eliquis. 6. Recent REBECCA February 12, [address] Portillo shows: LVEF of 45%. VSD with left to right shunt with jet diameter approximately 1.1 cm. Mild LVH. Severe dilated left atrium with no thrombus noted in the left atrium or left atrial appendage. A bubble study showed no shunt across the interatrial septum. RVSP was 46 mmHg. Moderate VT, mild to moderate TR and mild AR were noted. 7. Left and right heart cath February 12, 2017 showed: Mild to moderate pulmonary hypertension. Normal left ventricular end-diastolic pressures. No hemodynamic coronary epicardial stenosis. PAST SURGICAL HISTORY 1. Colonoscopy. 2. Appendectomy. HOME MEDICATIONS 1. Metformin 850 mg p.o. b.i.d. 2. Glipizide 10 mg p.o. daily. 3. Eliquis 5 mg p.o. b.i.d. 4. Metoprolol succinate 50 mg p.o. b.i.d. 5. Amlodipine 10 mg p.o. daily. 6. Prinivil 40 mg p.o. daily. ALLERGIES Tetanus and diphtheria toxoid. SOCIAL HISTORY The patient lives alone. He is a lifetime nonsmoker, denies illicit drugs or alcohol. 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 FAMILY HISTORY Family history is positive for VT in his father and CHF in his father in his 70s. REVIEW OF SYSTEMS Review of systems is negative except for what was stated above in the HPI. PHYSICAL EXAMINATION GENERAL: This is a pleasant 62-year-old male in no acute distress. VITAL SIGNS: Temperature 98.0, respiratory rate 16 to 18, pulse 72, blood pressure 150/79. NECK: Trachea is midline. No thyromegaly or lymphadenopathy. HEART: S1 and S2, irregular rate and rhythm. A 3/6 systolic murmur over the aortic region. Unit #: [id number] #: [id number] Patient: ELADIO SANDOVAL LUNGS: Clear to auscultation anterior. Rales are noted in the bases. No wheezing or rhonchi. ABDOMEN: Abdomen is slightly distended, nontender, bowel sounds are present. EXTREMITIES: Pulses are palpable. No clubbing, cyanosis or edema. NEUROLOGIC: He is awake, alert and oriented. He moves all extremities equally. He follows commands with ease. DIAGNOSTIC STUDIES LABORATORY: Sodium 138, potassium 3.6, chloride 106, CO2 23, BUN 16, creatinine 0.8, glucose 135, hemoglobin 12.4, hematocrit 36.6, WBCs 11.3, platelet 258, BNP 558. Troponin is less than 0.05. TSH is 0.83. Lactic acid of 1.4. IMAGING: Chest x-ray shows moderate cardiomegaly with pulmonary venous redistribution and mild diffuse interstitial pulmonary edema suggestive of CHF. CARDIOVASCULAR: EKG shows atrial fibrillation, rate of 74 beats per minute, QTc interval 457 msec, no acute ischemic change. IMPRESSION 1. [id number] systolic end-diastolic congestive heart failure. Last ejection fraction noted to be 40% to 45%. 2. Congenital ventricular septal defect. 3. Atrial fibrillation, rate controlled, on chronic anticoagulation with Eliquis. 4. Hypertension. 5. Hyperlipidemia. 6. Diabetes mellitus type 2. 7. Obesity. 8. Slightly hypokalemic. PLAN We have admitted the patient. Will plan to continue with aggressive diuresis with 2 mg of Bumex IV q.8 h. Will continue to follow electrolytes. There is no need to repeat echocardiogram at this time as the patient just recently had a transesophageal echo in January of 2017 as well as no reason to repeat ischemic evaluation as the patient just had cardiac cath, left and right, in January of [address] Portillo. He is slightly hypokalemic. Will give an additional 40 mEq of K-Dur x1 today, trend cardiac enzymes, place him on 1800 mL fluid restriction and 2 g sodium diet, also daily weights. I have reinforced the importance of following fluid restriction and a low sodium diet. The patient at this time is still deciding on whether he wants to have VSD repair in the future. Further recommendations pending Dr. Trujillo' assessment. Dictated by Amie Scott A.P.R.N. for Praveen Trujillo M.D. LMW/cf TD: 04/12/2017 21:26 JOB #: [id number] Unit #: [id number] #: [id number] Patient: ELADIO SANDOVAL HISTORY AND PHYSICAL Page 1 of 1 X Amie Scott APRN HISTORY AND PHYSICAL
[~2017-04-10 02:31] MED LIST changes: +AMLODIPINE BESY10 MG PO; +ATENOLOL50 MG PO; +CEFTIN PO; +ELIQUIS5 MG PO; +GLIPIZIDE ER10 MG PO; +HYDRALAZINE HCL25 MG; +KLOR-CON PO; +LIPITOR20 MG PO; +MAG-OX 400400 M1 PO; +METFORMIN HCL850 MG PO; +PRINIVIL40 MG PO; +PROAIR HFA8.5 GM INH; +ZITHROMAX PO
[2017-04-10 03:34] LABS: POC - TROPONIN <0.05 ng/mL (<=0.05)
[2017-04-10 03:50] LABS: BASOPHIL# 0.1 X10e3 (0-0.3); BASOPHIL% 0.6 % (0-2.5); EOSINOPHIL# 0.3 X10e3 (0-0.7); EOSINOPHIL% 2.4 % (0.0-7.0); HEMATOCRIT 36.6 % (38.0-50.0); HEMOGLOBIN 12.4 gm/dL (13.0-16.0); LYMPHOCYTE# 1.5 X10e3 (1.0-3.5); LYMPHOCYTE% 13.6 % (17.0-45.0); MEAN CELL VOLUME 95.4 FL (83-96); MEAN CORPUSCULAR HEMOGLOBIN 32.4 PG (28-34); MEAN CORPUSCULAR HGB CONC 33.9 g/dL (30-36); MEAN PLATELET VOLUME 8.6 FL (6.5-11.5); MONOCYTE# 1.3 X10e3 (0-1.0); MONOCYTE% 11.4 % (3.0-12.0); NEUTROPHIL# 8.2 X10e3 (1.5-7.1); PLATELET COUNT 258 X10e3 (140-420); RED BLOOD COUNT 3.83 X10e (3.90-5.60); RED CELL DISTRIBUTION WIDTH 13.9 % (11.0-15.5); WHITE BLOOD COUNT 11.3 X10e3 (4.0-10.5)
[2017-04-10 03:51] LABS: DIFF IND NO
[2017-04-10 04:05] LABS: PARTIAL THROMBOPLASTIN TIME 27.9 SECONDS (23.5-31.3); PROTHROMBIN TIME (PATIENT) 11.1 SECONDS (10.0-11.7)
[2017-04-10 04:20] LABS: ALBUMIN SERUM 3.7 g/dL (3.5-5.0); BILIRUBIN, DIRECT 0.2 mg/dL (0.0-0.2); BILIRUBIN,INDIRECT 1.3 mg/dL (0.0-0.9); BILIRUBIN,TOTAL 1.5 mg/dL (0.2-2.0); CALCIUM SERUM 8.9 mg/dL (8.4-10.2); CREATININE SERUM 0.8 mg/dL (0.6-1.4); GLOM FILT RATE Estimated 95.1 mL/min (>60); POTASSIUM 3.6 mmol/L (3.5-5.1); PROTEIN TOTAL SERUM 7.6 g/dL (6.0-8.3)
[2017-04-10] MEDS ORDERED: METFORMIN HCL850 MG PO (04:46)
[2017-04-10] MEDS ORDERED: GLIPIZIDE10 MG PO (04:47)
[2017-04-10] MEDS ORDERED: ELIQUIS5 MG PO (04:47)
[2017-04-10] MEDS ORDERED: AMLODIPINE BESY10 MG PO (04:48)
[2017-04-10] MEDS ORDERED: METOPROLOL SUCC50 MG PO (04:48)
[2017-04-10] MEDS ORDERED: PRINIVIL40 MG PO (04:49)
[2017-04-10 05:46] LABS: POC - CKMB 1.6 ng/mL (0.0-7.9); POC - TROPONIN <0.05 ng/mL (<=0.05)
[2017-04-10 10:45] LABS: CK TOTAL 57 IU/L (36-174)
[2017-04-10 16:13] LABS: CK TOTAL 50 IU/L (36-174)
[2017-04-11 05:53] LABS: HEMATOCRIT 39.4 % (38.0-50.0); HEMOGLOBIN 13.6 gm/dL (13.0-16.0); MEAN CELL VOLUME 95.3 FL (83-96); MEAN CORPUSCULAR HEMOGLOBIN 32.9 PG (28-34); MEAN CORPUSCULAR HGB CONC 34.5 g/dL (30-36); MEAN PLATELET VOLUME 8.4 FL (6.5-11.5); RED BLOOD COUNT 4.14 X10e (3.90-5.60); RED CELL DISTRIBUTION WIDTH 14.1 % (11.0-15.5); WHITE BLOOD COUNT 10.9 X10e3 (4.0-10.5)
[2017-04-11 07:10] LABS: BUN/CREATININE RATIO 13.75; CALCIUM SERUM 9.1 mg/dL (8.4-10.2); CREATININE SERUM 0.8 mg/dL (0.6-1.4); GLOM FILT RATE Estimated 95.1 mL/min (>60); MAGNESIUM 1.5 mg/dL (1.6-3.0); POTASSIUM 3.2 mmol/L (3.5-5.1)
[2017-04-12 05:23] LABS: HEMATOCRIT 38.7 % (38.0-50.0); HEMOGLOBIN 13.4 gm/dL (13.0-16.0); MEAN CELL VOLUME 94.9 FL (83-96); MEAN CORPUSCULAR HEMOGLOBIN 32.8 PG (28-34); MEAN CORPUSCULAR HGB CONC 34.6 g/dL (30-36); RED BLOOD COUNT 4.08 X10e (3.90-5.60); RED CELL DISTRIBUTION WIDTH 14.1 % (11.0-15.5); WHITE BLOOD COUNT 10.7 X10e3 (4.0-10.5)
[2017-04-12 06:20] LABS: BUN/CREATININE RATIO 18.88; CALCIUM SERUM 8.7 mg/dL (8.4-10.2); CREATININE SERUM 0.9 mg/dL (0.6-1.4); GLOM FILT RATE Estimated 90.6 mL/min (>60); MAGNESIUM 1.8 mg/dL (1.6-3.0); POTASSIUM 3.2 mmol/L (3.5-5.1)
[2017-04-13 07:03] LABS: POTASSIUM 3.3 mmol/L (3.5-5.1)
[2017-04-14 05:39] LABS: HEMATOCRIT 39.5 % (38.0-50.0); HEMOGLOBIN 13.4 gm/dL (13.0-16.0); MEAN CELL VOLUME 95.8 FL (83-96); MEAN CORPUSCULAR HEMOGLOBIN 32.5 PG (28-34); MEAN PLATELET VOLUME 8.2 FL (6.5-11.5); RED BLOOD COUNT 4.12 X10e (3.90-5.60); RED CELL DISTRIBUTION WIDTH 13.9 % (11.0-15.5); WHITE BLOOD COUNT 9.8 X10e3 (4.0-10.5)
[2017-04-14 06:25] LABS: GLOM FILT RATE Estimated 79.8 mL/min (>60); POTASSIUM 3.6 mmol/L (3.5-5.1)
[2017-04-14] MEDS ORDERED: TENORMIN50 MG PO (14:35)
[2017-04-14] MEDS ORDERED: BUMEX PO (14:36)
[2017-04-14] MEDS ORDERED: HYDRALAZINE HCL50 MG PO (14:37)
[2017-04-14] MEDS ORDERED: ALDACTONE PO (14:38)
[2017-04-14] MEDS ORDERED: K-DUR10 MEQ PO (14:39)
== END 2017-04-14 18:07 | disposition home or self-care (01) | DRG 292 ==
LOC: CED 02:31 → C5B 04:40 → CEDOF 04:40 → CED 04:53 → C5B 05:46 → CEDOF 05:46 → C5B 04-14 18:07
PROVIDERS: Emergency Medicine; Internal Medicine Cardiovascular Disease; Nurse Practitioner
DX: I11.0 Hypertensive heart disease with heart failure (principal); Q21.0 Ventricular septal defect; I27.2 Other secondary pulmonary hypertension; Z79.01 Long term (current) use of anticoagulants; I50.23 Acute on chronic systolic (congestive) heart failure; I48.2 Chronic atrial fibrillation; I10 Essential (primary) hypertension; E78.5 Hyperlipidemia, unspecified; G47.33 Obstructive sleep apnea (adult) (pediatric); E11.9 Type 2 diabetes mellitus without complications; E87.6 Hypokalemia; E66.9 Obesity, unspecified; I08.1 Rheumatic disorders of both mitral and tricuspid valves; Z79.84 Long term (current) use of oral hypoglycemic drugs
CPT/HCPCS: 36415; 71010; 80048; 80076; 82550; 82553; 82947; 83605; 83735; 83880; 84132; 84443; 84484; 85025; 85027; 85610; 85730; 87040; 93005; 99285; J1815; J1940; J3475